=== PATIENT | male | born 1995 | race Caucasian/White ===

== ENCOUNTER 2020-05-11 18:47 | Emergency (ER) | payer SELFPAY ==
[2020-05-11 19:58] VITALS: BP 136/83; PULSE 84; RESP 16; TEMP 36.4; O2SAT 96; BMI 36.4
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
== END 2020-05-11 20:50 | disposition home or self-care (01) ==
PROVIDERS: Emergency Provider Nurse Practitioner Family
DX: Z04.1 Encounter for examination and observation following transport accident (principal); V49.50XA Passenger injured in collision with unspecified motor vehicles in traffic accident, initial encounter
CPT/HCPCS: 12345; 99281